=== PATIENT | male | born 1940 | race Caucasian/White ===

== ENCOUNTER 2016-11-13 14:13 | Inpatient (IN) | payer OTHER ==
[~2016-11-13] VITALS: Ht 160 cm; Wt 55.2 kg
[2016-11-13 14:40] LABS: HEMATOCRIT 36.1 % (38.0-50.0); MCH 30.8 PG (29.0-34.0); MCHC 33.8 G/DL (30.0-36.0); MCV 91.2 FL (86-99); MEAN PLAT.VOLUME 9.2 uM^3 (9.0-12.4); PLATELET COUNT 239 K/uL (156-360); RBC DIS.WIDTH-CV 12.9 % (11.8-14.6); RBC DIS.WIDTH-SD 42.5 % (39-53); RED BLOOD COUNT 3.96 M/uL (4.00-5.50); WHITE BLOOD COUNT 11.2 K/uL (4.1-10.2)
[2016-11-13 14:50] LABS: CHLORIDE 105 mEq/L (99-109); POTASSIUM 4.1 mEq/L (3.7-5.4)
[2016-11-13 14:51] LABS: SODIUM 139 mEq/L (136-147)
[2016-11-13 14:52] LABS: GLUCOSE 97 mg/dL (70-99)
[2016-11-13 14:54] LABS: ANION GAP 12 MEQ/L (2-14)
[2016-11-13 14:56] LABS: GFR ESTIMATE (CALCULATED) > 59 mL/min/
[2016-11-13 14:57] LABS: UREA NITROGEN (BUN) 14 mg/dL (9-23)
[2016-11-13] MEDS ORDERED: GLUCOPHAGE500 MG PO (18:18)
[2016-11-13] MEDS ORDERED: DILANTIN100 MG PO (18:19)
[2016-11-13] MEDS ORDERED: LOTREL 5/401 CAPSULE PO (18:19)
[2016-11-13] MEDS ORDERED: TOPROL XL100 MG PO (18:19)
[2016-11-13] MEDS ORDERED: LIPITOR40 MG PO (18:19)
[2016-11-13 18:31] LABS: PROTHROMBIN TIME 10.5 (9.2-11.2); PTT 28.3 (25-32)
[2016-11-13 20:32] VITALS: BP 159/73
[2016-11-13 23:33] VITALS: BP 133/64
[2016-11-14 04:23] VITALS: BP 143/63
[2016-11-14 07:59] VITALS: BP 156/70
[2016-11-14 11:04] VITALS: BP 131/62
[2016-11-14 16:43] VITALS: BP 142/68
[2016-11-14 20:39] VITALS: BP 155/70
[2016-11-14 23:40] VITALS: BP 172/67
[2016-11-15 04:59] VITALS: BP 129/60
[2016-11-15 07:49] VITALS: BP 126/77
[2016-11-15 12:20] VITALS: BP 131/62
[2016-11-15 16:30] VITALS: BP 120/57
[2016-11-15 19:25] VITALS: BP 131/60
[2016-11-15 23:44] VITALS: BP 128/76
[2016-11-16] VITALS (11 sets, daily range): BP systolic 104–140; BP diastolic 49–78
[2016-11-16] MEDS ORDERED: ENDOCET 5-3251 EACH PO (07:38)
[2016-11-16] MEDS ORDERED: LOVENOX40 MG/0.4 SC (07:38)
[2016-11-16 18:03] LABS: HEMATOCRIT 34.5 % (38.0-50.0); MCH 30.2 PG (29.0-34.0); MCHC 33.9 G/DL (30.0-36.0); MCV 89.1 FL (86-99); PLATELET COUNT 232 K/uL (156-360); RBC DIS.WIDTH-CV 12.9 % (11.8-14.6); RBC DIS.WIDTH-SD 42.1 % (39-53); RED BLOOD COUNT 3.87 M/uL (4.00-5.50); WHITE BLOOD COUNT 15.9 K/uL (4.1-10.2)
[2016-11-16 18:13] LABS: CHLORIDE 103 mEq/L (99-109); SODIUM 137 mEq/L (136-147)
[2016-11-16 18:16] LABS: GLUCOSE 136 mg/dL (70-99)
[2016-11-16 18:17] LABS: ANION GAP 15 MEQ/L (2-14)
[2016-11-16 18:18] LABS: TOTAL BILIRUBIN 0.3 mg/dL (0.0-1.0)
[2016-11-16 18:19] LABS: ALKALINE PHOSPHATASE 78 IU/L (3-129); GFR ESTIMATE (CALCULATED) > 59 mL/min/
[2016-11-16 18:20] LABS: UREA NITROGEN (BUN) 17 mg/dL (9-23)
[2016-11-16 18:35] LABS: D-DIMER ELISA 1.86 mg/L FEU (< 0.57)
[2016-11-16 18:45] LABS: TROP-I INTERPRETATION NEGATIVE; TROPONIN-I 0.08 ng/mL (0.0-0.30)
[2016-11-17 00:44] VITALS: BP 137/54
[2016-11-17 01:40] LABS: TROP-I INTERPRETATION NEGATIVE; TROPONIN-I 0.11 ng/mL (0.0-0.30)
[2016-11-17 01:44] VITALS: BP 136/52
[2016-11-17 02:44] VITALS: BP 122/61
[2016-11-17 03:44] VITALS: BP 125/61
[2016-11-17 06:15] LABS: TROP-I INTERPRETATION NEGATIVE; TROPONIN-I 0.07 ng/mL (0.0-0.30)
[2016-11-17 07:56] VITALS: BP 139/66
[2016-11-17 11:26] VITALS: BP 139/62
[2016-11-17] MEDS ORDERED: COLACE100 MG PO (15:24)
[2016-11-17] MEDS ORDERED: ASPIR 8181 M1 PO (15:25)
[2016-11-17] MEDS ORDERED: ZESTRIL20 MG PO (15:25)
[2016-11-17] MEDS ORDERED: ASPIR-TRIN325 M1 PO (15:26)
== END 2016-11-17 15:04 | DRG 563 ==
LOC: EME 14:13 → 3EAST 18:00 → EDOF 18:00 → 3EAST 19:38 → 4EAST 11-16 17:57
PROVIDERS: Emergency Medicine; Internal Medicine; Orthopaedic Surgery
DX: S82.145A Nondisplaced bicondylar fracture of left tibia, initial encounter for closed fracture (principal); S89.292A Other physeal fracture of upper end of left fibula, initial encounter for closed fracture; V89.2XXA Person injured in unspecified motor-vehicle accident, traffic, initial encounter; I10 Essential (primary) hypertension; E11.9 Type 2 diabetes mellitus without complications; G40.909 Epilepsy, unspecified, not intractable, without status epilepticus; G51.0 Bell's palsy; F17.210 Nicotine dependence, cigarettes, uncomplicated; I48.0 Paroxysmal atrial fibrillation; I34.0 Nonrheumatic mitral (valve) insufficiency; E78.00 Pure hypercholesterolemia, unspecified; E78.5 Hyperlipidemia, unspecified
CPT/HCPCS: 70450; 71010; 71020; 71250; 71275; 73564; 74176; 80048; 80053; 82948; 83605; 84443; 84484; 85027; 85379; 85610; 85730; 86900; 86901; 93005; 93306; 97530 GO; 99281; 99285; J1650; J2270; J7030

== ENCOUNTER 2016-11-17 13:56 | Inpatient (IN) | payer OTHER ==
[~2016-11-17] VITALS: Ht 160 cm; Wt 54.6 kg
[~2016-11-17 13:56] MED LIST: DILANTIN100 MG PO; ENDOCET 5-3251 EACH PO; GLUCOPHAGE500 MG PO; LIPITOR40 MG PO; LOTREL 5/401 CAPSULE PO; LOVENOX40 MG/0.4 SC; TOPROL XL100 MG PO
[2016-11-17 14:00] VITALS: BP 158/72
[2016-11-17] MEDS ORDERED: COLACE100 MG PO (15:24)
[2016-11-17] MEDS ORDERED: ZESTRIL20 MG PO (15:25)
[2016-11-17] MEDS ORDERED: ASPIR 8181 M1 PO (15:25)
[2016-11-17] MEDS ORDERED: ASPIR-TRIN325 M1 PO (15:26)
[2016-11-18 00:34] VITALS: BP 140/63
[2016-11-18 05:45] VITALS: BP 140/63
[2016-11-18 07:55] LABS: HEMATOCRIT 29.2 % (38.0-50.0); MCH 30.6 PG (29.0-34.0); MCHC 33.6 G/DL (30.0-36.0); MCV 91.3 FL (86-99); MEAN PLAT.VOLUME 10.5 uM^3 (9.0-12.4); PLATELET COUNT 235 K/uL (156-360); RBC DIS.WIDTH-CV 12.8 % (11.8-14.6); RBC DIS.WIDTH-SD 42.2 % (39-53)
[2016-11-18 08:21] LABS: WHITE BLOOD COUNT 9.7 K/uL (4.1-10.2)
[2016-11-18 08:23] LABS: ALKALINE PHOSPHATASE 70 IU/L (3-129); ANION GAP 11 MEQ/L (2-14); CHLORIDE 104 MEQ/L (99-109); GFR ESTIMATE (CALCULATED) > 59 mL/min/; GLUCOSE 102 mg/dL (70-99); POTASSIUM 3.9 MEQ/L (3.7-5.4); SAMPLE HEMOLYSIS CHECK 0; SAMPLE ICTERIC CHECK 0; SAMPLE LIPEMIA CHECK 0; SODIUM 140 MEQ/L (136-147); TOTAL BILIRUBIN 0.3 MG/DL (0.0-1.0); UREA NITROGEN (BUN) 13 mg/dL (9-23)
[2016-11-18 15:38] VITALS: BP 184/74
[2016-11-18 17:36] VITALS: BP 147/65
[2016-11-19 05:47] VITALS: BP 163/68
[2016-11-19 15:02] VITALS: BP 159/72
[2016-11-19 16:18] LABS: POINT-OF-CARE METER ID UU14174215
[2016-11-20 06:07] VITALS: BP 145/66
[2016-11-20 07:24] LABS: POINT-OF-CARE METER ID UU14174215
[2016-11-20 15:29] VITALS: BP 157/70
[2016-11-20 16:24] LABS: POINT-OF-CARE METER ID UU14174215
[2016-11-21 05:31] VITALS: BP 150/65
[2016-11-21 07:34] LABS: POINT-OF-CARE METER ID UU14174215
[2016-11-21 15:51] VITALS: BP 152/69
[2016-11-21 16:50] LABS: POINT-OF-CARE METER ID UU14174215
[2016-11-22 05:33] VITALS: BP 150/66
[2016-11-22 06:24] LABS: POINT-OF-CARE METER ID UU14174215; POINT-OF-CARE USER ID ENVGAF
[2016-11-22 16:31] VITALS: BP 134/69
[2016-11-22 16:40] LABS: POINT-OF-CARE METER ID UU14174215
[2016-11-23 05:39] VITALS: BP 133/63
[2016-11-23 06:25] LABS: POINT-OF-CARE METER ID UU14174215; POINT-OF-CARE USER ID ENVGAF
[2016-11-23 16:56] LABS: POINT-OF-CARE METER ID UU14174215
[2016-11-23 17:23] VITALS: BP 148/63
[2016-11-24 04:52] VITALS: BP 160/72
[2016-11-24 06:14] LABS: HEMATOCRIT 31.3 % (38.0-50.0); MCH 30.1 PG (29.0-34.0); MCHC 33.2 G/DL (30.0-36.0); MCV 90.5 FL (86-99); MEAN PLAT.VOLUME 8.9 uM^3 (9.0-12.4); RBC DIS.WIDTH-CV 12.4 % (11.8-14.6); RBC DIS.WIDTH-SD 40.6 % (39-53); RED BLOOD COUNT 3.46 M/uL (4.00-5.50); WHITE BLOOD COUNT 10.9 K/uL (4.1-10.2)
[2016-11-24 06:17] LABS: PLATELET COUNT 434 K/uL (156-360)
[2016-11-24 06:51] LABS: ALKALINE PHOSPHATASE 83 IU/L (3-129); ANION GAP 11 MEQ/L (2-14); CHLORIDE 98 MEQ/L (99-109); GFR ESTIMATE (CALCULATED) > 59 mL/min/; GLUCOSE 120 mg/dL (70-99); POTASSIUM 4.2 MEQ/L (3.7-5.4); SAMPLE HEMOLYSIS CHECK 0; SAMPLE ICTERIC CHECK 0; SAMPLE LIPEMIA CHECK 0; SODIUM 134 MEQ/L (136-147); TOTAL BILIRUBIN 0.3 MG/DL (0.0-1.0); UREA NITROGEN (BUN) 15 mg/dL (9-23)
[2016-11-24 07:35] LABS: POINT-OF-CARE METER ID UU14174215
[2016-11-24 15:29] VITALS: BP 139/63
[2016-11-24 16:29] LABS: POINT-OF-CARE METER ID UU13113720
[2016-11-25 04:48] VITALS: BP 161/72
[2016-11-25 07:09] LABS: POINT-OF-CARE METER ID UU14174215
[2016-11-25 11:13] LABS: POINT-OF-CARE METER ID UU14174215
[2016-11-25 15:15] VITALS: BP 162/70
[2016-11-25 16:16] LABS: POINT-OF-CARE METER ID UU14174215
[2016-11-26 05:39] LABS: HEMATOCRIT 31.7 % (38.0-50.0); MCH 30.8 PG (29.0-34.0); MCHC 34.1 G/DL (30.0-36.0); MCV 90.3 FL (86-99); MEAN PLAT.VOLUME 9.3 uM^3 (9.0-12.4); PLATELET COUNT 513 K/uL (156-360); RBC DIS.WIDTH-CV 12.5 % (11.8-14.6); RBC DIS.WIDTH-SD 40.8 % (39-53); RED BLOOD COUNT 3.51 M/uL (4.00-5.50); WHITE BLOOD COUNT 12.5 K/uL (4.1-10.2)
[2016-11-26 06:04] VITALS: BP 164/70
[2016-11-26 06:05] LABS: ANION GAP 12 MEQ/L (2-14); CHLORIDE 96 MEQ/L (99-109); GFR ESTIMATE (CALCULATED) > 59 mL/min/; GLUCOSE 112 mg/dL (70-99); POTASSIUM 4.7 MEQ/L (3.7-5.4); SAMPLE HEMOLYSIS CHECK 0; SAMPLE ICTERIC CHECK 0; SAMPLE LIPEMIA CHECK 0; SODIUM 132 MEQ/L (136-147); TOTAL BILIRUBIN 0.3 MG/DL (0.0-1.0); UREA NITROGEN (BUN) 13 mg/dL (9-23)
[2016-11-26 06:06] LABS: ALKALINE PHOSPHATASE 104 IU/L (3-129)
[2016-11-26 06:38] LABS: POINT-OF-CARE METER ID UU14174215; POINT-OF-CARE USER ID ENVGAF
[2016-11-26 15:01] VITALS: BP 117/56
[2016-11-26 16:17] LABS: POINT-OF-CARE METER ID UU14174215
[2016-11-27 05:32] VITALS: BP 116/65
[2016-11-27 06:55] LABS: POINT-OF-CARE METER ID UU13113720
== END 2016-11-27 13:45 | disposition home health service (06) | DRG 560 ==
LOC: 3WEST 13:56
PROVIDERS: Physical Medicine & Rehabilitation Pain Medicine; Psychiatry & Neurology Neurology
PROC: F07M0ZZ Range of Motion and Joint Mobility Treatment of Musculoskeletal System - Whole Body (ICD-10-PCS; principal; 2016-11-17)
DX: S82.832D Other fracture of upper and lower end of left fibula, subsequent encounter for closed fracture with routine healing (principal); S89.292D Other physeal fracture of upper end of left fibula, subsequent encounter for fracture with routine healing; V89.2XXD Person injured in unspecified motor-vehicle accident, traffic, subsequent encounter; I48.92 Unspecified atrial flutter; G40.909 Epilepsy, unspecified, not intractable, without status epilepticus; I10 Essential (primary) hypertension; I48.0 Paroxysmal atrial fibrillation; D64.9 Anemia, unspecified; E78.00 Pure hypercholesterolemia, unspecified; G47.00 Insomnia, unspecified; E87.1 Hypo-osmolality and hyponatremia; E11.9 Type 2 diabetes mellitus without complications
CPT/HCPCS: 73564; 73590; 80053; 80185; 82948; 85027; 97110 GO; 97530 GP; J1650